=== PATIENT | male | born 1930 | race Caucasian/White ===

== ENCOUNTER 2017-03-23 12:03 | Day surgery (SDC) | payer OTHER, MEDICARE ==
[~2017-03-23] VITALS: Ht 170.2 cm; Wt 79.4 kg
[~2017-03-23 12:03] MED LIST: ASPIR-LOW81 MG PO; AUGMENTIN875 MG PO; COZAAR25 MG PO; FEROSUL325 MG PO; FUROSEMIDE40 MG PO; HYDROCODON-ACE1 EAC7 PO; K-DUR20 MEQ PO; LASIX40 MG PO; LOPRESSOR100 M1 PO; METOPROLOL SUC100 MG PO; PLAVIX75 MG PO; PRAVASTATIN SOD80 MG PO; SIMVASTATIN80 MG PO; SUPER B COMP1 TABLET PO; TRIGLIDE160 MG PO; VITAMIN B12-FO1 EACH PO
== END 2017-03-23 16:00 | disposition home or self-care (01) ==
LOC: CATH 12:03
DX: I49.5 Sick sinus syndrome (principal); I25.10 Atherosclerotic heart disease of native coronary artery without angina pectoris; I48.91 Unspecified atrial fibrillation; E78.5 Hyperlipidemia, unspecified; I12.9 Hypertensive chronic kidney disease with stage 1 through stage 4 chronic kidney disease, or unspecified chronic kidney disease; N18.9 Chronic kidney disease, unspecified; Z95.1 Presence of aortocoronary bypass graft; Z79.82 Long term (current) use of aspirin; Z79.02 Long term (current) use of antithrombotics/antiplatelets
CPT/HCPCS: C1785; J0690; J1200; J2250; J3010; S0020